=== PATIENT | male | born 1960 | race Caucasian/White ===

== ENCOUNTER 2019-12-03 17:36 | Inpatient (IN) | payer BC ==
[~2019-12-03] VITALS: Ht 177.8 cm; Wt 95.9 kg
[2019-12-03] MEDS ORDERED: IV NORMAL SALINE 1000ML BAG 1,000 ML IV ONE (17:45)
[2019-12-03 17:58] LABS: BASO # 0.2 x10^3/uL (0.0-0.2); BASO % 1 % (0-3); EOS # 0.1 x10^3/uL (0.0-0.7); EOS % 1 % (0-3); HEMATOCRIT 49.3 % (39.0-53.0); HEMOGLOBIN 16.7 g/dL (13.0-17.5); LYMPH % 27 % (24-48); MEAN CORPUSCULAR HEMOGLOBIN 32 pg (25-35); MEAN CORPUSCULAR HGB CONC 34 g/dL (31-37); MEAN CORPUSCULAR VOLUME 93 fL (79-100); MONO # 1.1 x10^3/uL (0.0-1.1); MONO % 8 % (0-9); NEUT # 9.2 x10^3/uL (1.8-7.7); NEUT % 63 % (31-73); PLATELET COUNT 344 x10^3/uL (140-400); RED BLOOD COUNT 5.31 x10^6/uL (4.30-5.70); RED CELL DISTRIBUTION WIDTH 13.4 % (11.5-14.5); WHITE BLOOD COUNT 14.6 x10^3/uL (4.0-11.0)
[2019-12-03] MEDS ORDERED: fentaNYL PF VIAL 100 MCG/2 ML VIAL IV ONE (18:00)
[2019-12-03] MEDS ORDERED: IOHEXOL 350 MG/ML 100 ML VIAL. IV ONE (18:00)
[2019-12-03] MEDS ORDERED: CONTRAST GIVEN. MC PRN (18:00)
[2019-12-03] MEDS ORDERED: ONDANSETRON PF 4 MG/2 ML VIAL. IVP ONE (18:00)
--- NOTE | 2019-12-03 18:04 | PHYS DOC ---
Past Medical History Past Medical History: Diabetes-Type II, Hypertension (SANDY LAROSE DO) Past Surgical History: No Surgical History (SANDY LAROSE DO) Smoking Status: Never Smoker Alcohol Use: Heavy (Binge drinks on weekends (reports average 24 pack every weekend)) Drug Use: None (SANDY LAROSE DO) General Adult EDM: Chief Complaint: GI PROBLEM HPI: HPI: 59-year-old male with past medical history of diabetes and hypertension presents with sudden epigastric abdominal pain which she reports as "tearing". Patient reports sensation of almost passing out. Reports diaphoresis. EMS was called and found patient with blood pressure in the 80s over 60s. He fluid hydration provided with some improvement. Patient does report some associated nausea and "dry heaves ". Patient reports sensation of needing to have a bowel movement. Denies known sick contacts. Denies fever or chills. Reports had previously been well. Reports symptoms started very suddenly at his place of employment. Denies trauma. Denies known exposure to COVID19. Reports history of binge drinking but on the weekends. (SANDY LAROSE DO) Review of Systems: Review of Systems: Constitutional: Denies fever or chills Eyes: Denies redness or eye pain HENT: Denies nasal congestion or sore throat Respiratory: Denies cough or shortness of breath Cardiovascular: Reports chest pain; denies palpitations GI: Reports abdominal pain and nausea : Denies dysuria or hematuria Musculoskeletal: Reports back pain; denies joint pain Integument: Denies rash or skin lesions; reports diaphoresis Neurologic: Denies headache, focal weakness or sensory changes Complete systems were reviewed and found to be within normal limits, except as documented in this note. (SANDY LAROSE DO) Heart Score: HEART Score for Chest Pain: HEART Score for Chest Pain Response (Comments) Value History Moderately Suspicious 1 ECG Normal 0 Age >45 - < 65 1 Risk Factors 1 or 2 Risk Factors 1 Total 3 Risk Factors: Risk Factors: DM, Current or recent (<one month) smoker, HTN, HLP, family history of CAD, obesity. Risk Scores: Score 0 - 3: 2.5% MACE over next 6 weeks - Discharge Home Score 4 - 6: 20.3% MACE over next 6 weeks - Admit for Clinical Observation Score 7 - 10: 72.7% MACE over next 6 weeks - Early Invasive Strategies (SANDY LAROSE DO) Current Medications: Current Medications Medications (Trade) Dose Ordered Sig/Chidi Start Time Stop Time Status Last Admin Dose Admin Info (CONTRAST GIVEN -- Rx MONITORING) 1 each PRN DAILY PRN 12/03/19 18:00 12/05/19 17:59 Iohexol (Omnipaque 350 Mg/ml) 90 ml 1X ONCE 12/03/19 18:00 12/03/19 18:01 Sodium Chloride 1,000 ml @ 1,000 mls/hr 1X ONCE 12/03/19 17:45 12/03/19 18:44 (SANDY LAROSE DO) Allergies: Allergies: Allergies Coded Allergies Type Severity Reaction Last Updated Verified No Known Drug Allergies 12/03/19 No (SANDY LAROSE DO) Physical Exam: PE: Constitutional: Well developed, well nourished, ill appearing, non-toxic appearance HENT: Normocephalic, atraumatic, oropharynx moist Eyes: PERRL, EOMI, conjunctiva normal, no discharge, no nystagmus Neck: Normal range of motion, no tenderness, supple Cardiovascular: Heart rate normal, regular rhythm Lungs & Thorax: Bilateral breath sounds clear to auscultation, no wheezing Abdomen: Soft, epigastric tenderness on palpation, voluntary guarding noted, mild distention noted Skin: Warm, dry, no erythema, no rash Back: No tenderness, no CVA tenderness Extremities: No tenderness, ROM intact, no edema Neurologic: Alert and oriented X 3, normal motor function, normal sensory function, no focal deficits noted Psychologic: Affect normal, judgment normal (SANDY LAROSE DO) Current Patient Data: Vital Signs: Vital Signs Date Time Temp Pulse Resp B/P (MAP) Pulse Ox O2 Delivery O2 Flow Rate FiO2 12/03/19 17:36 97.6 97 20 112/85 (94) 94 Room Air 97.6 (SANDY LAROSE DO) EKG: EKG: @1743 NSR at 91bpm, NO ST elevation, QRS 102ms, QT/QTc 362/447ms (SANDY LAROSE DO) Radiology/Procedures: Radiology/Procedures: [] (SANDY LAROSE DO) Course & Med Decision Making: Course & Med Decision Making Patient presents via EMS with history of near syncope, epigastric pain with radiation to back, nausea and dry heaving, and hypotension. Patient noted to be diaphoretic upon arrival. Pain addressed with fentanyl. Zofran provided for nausea. Cannot exclude aortic dissection or AAA. Patient sent immediately for CT imaging which is currently pending. Labs obtained and pending. Sign out given to Dr. Stark for further evaluation and final disposition. Discussed current findings and plan with patient, who acknowledges understanding and agreement. (SANDY LAROSE DO) Course & Med Decision Making Assumed care of patient at check out. CT angio c/a/p suggests pancreatitis. Lipase is significantly elevated. Will admit patient for further care. (ANNAMARIE STARK MD) Dragon Disclaimer: Dragon Disclaimer: This electronic medical record was generated, in whole or in part, using a voice recognition dictation system. (SANDY LAROSE DO) Departure Departure Impression: Primary Impression: Acute pancreatitis Additional Impression: Epigastric abdominal pain Disposition: ADMITTED INPATIENT Condition: STABLE SANDY LAROSE DO Dec 03, 2019 18:04 ANNAMARIE STARK MD December 04, 2019 00:26
[2019-12-03 18:10] LABS: PROTHROMBIN TIME PATIENT 12.2 SEC (11.7-14.0)
[2019-12-03 18:16] LABS: CALCIUM 10.1 mg/dL (8.5-10.1); CREATININE 1.1 mg/dL (0.7-1.3); GFR 68.3; POTASSIUM 3.8 mmol/L (3.5-5.1)
[2019-12-03 18:23] LABS: ALBUMIN 4.4 g/dL (3.4-5.0); ALBUMIN/GLOBULIN RATIO 1.2 (1.0-1.7); TOTAL BILIRUBIN 0.6 mg/dL (0.2-1.0)
--- NOTE | 2019-12-03 18:24 | RAD ---
EXAM: CT ANGIOGRAM CHEST AND ABDOMEN WITH AND WITHOUT IV CONTRAST CLINICAL HISTORY: tearing chest pain. COMPARISON: None. TECHNIQUE: CT of the chest following the administration of intravenous contrast during the pulmonary arterial phase. Axial, coronal and sagittal reformatted images were generated including MIP images. ---PQRS compliance statement - One or more of the following individualized dose reduction techniques were utilized for this study: 1. Automated exposure control 2. Adjustment of the mA and/or kV according to patient size 3. Use of iterative reconstruction technique--- FINDINGS: CT angiogram: Aorta is normal in caliber. No definite aortic dissection is identified. Intermittent atherosclerotic calcifications particularly of the infrarenal aorta. Bovine configuration of the aortic arch. The origin of the great vessels are widely patent. The celiac, SMA and IBETH are widely patent. 2 right renal arteries and a single left renal artery are also widely patent. Common iliac arteries bilaterally are also patent, normal in caliber without evidence for dissection. CHEST: Heart is not enlarged. No pericardial effusion. No mediastinal or hilar lymphadenopathy. No pleural effusion or pneumothorax. Linear subpleural opacities in the right lower lobe likely scarring/atelectasis. No lobar consolidation. No suspicious lung nodule or mass. ABDOMEN: Hepatic hypoattenuation likely fatty liver with focal sparing in the gallbladder fossa. Spleen is unremarkable. Adrenal glands are normal. Symmetric nephrograms. No focal renal lesion. No hydronephrosis. No hydroureter. Visualized appendix is normal. Moderate colonic stool content. No small or large bowel dilatation. Edema and infiltration is seen about the pancreatic head and body. Relative hypoenhancement of the pancreatic head/proximal body. No associated loculated fluid collection is seen. No abdominal lymphadenopathy. No abdominal ascites. Bones: Degenerative changes of the spine are seen. No aggressive osseous lesion is seen. IMPRESSION: 1. No evidence for aortic aneurysm or dissection. 2. Changes of acute pancreatitis involving the pancreatic head and body without associated loculated fluid collection. Relative hypoenhancement of the pancreatic head and body may be from ischemia or edema. No evidence for pancreatic necrosis. Electronically signed by: Panda Sultana MD (12/03/2019 6:21 PM) [facility]
[2019-12-03 18:37] LABS: BILIRUBIN,URINE NEGATIVE (NEG); CLARITY,URINE CLEAR; COLOR,URINE YELLOW; NITRITE,URINE NEGATIVE (NEG); PH,URINE 5.5 (<5.0-8.0); PROTEIN,URINE 30 mg/dL (NEG-TRACE); UROBILINOGEN,URINE 0.2 mg/dL (0.2 mg/dL)
[2019-12-03 18:52] LABS: BACTERIA,URINE 0 /HPF (0-FEW); HYALINE CASTS, URINE MODERATE /HPF; WBC,URINE OCC /HPF (0-4)
[2019-12-03] MEDS ORDERED: MORPHINE SULFATE 4 MG/ML VIAL. IV ONE (19:30)
[2019-12-03] MEDS: IV NORMAL SALINE 1000ML BAG 1,000 ML IV SCH ×2 (19:30→20:24)
[2019-12-03] MEDS ORDERED: ACETAMINOPHEN 650 MG SUPP.RECT. PR PRN (19:30)
[2019-12-03] MEDS ORDERED: ONDANSETRON PF 4 MG/2 ML VIAL. IV PRN (19:30)
[2019-12-03] MEDS ORDERED: MORPHINE SULFATE 4 MG/ML VIAL. IV PRN (19:45)
[2019-12-03] MEDS ORDERED: MULTIVIT INFUSN,ADULT 4,VIT K 10 ML, THIAMINE INJ 100 MG, FOLIC ACID INJ 1 MG in IV NOR... IV ONE (20:00)
[2019-12-03 21:30] VITALS: BP 106/65
[2019-12-03] MEDS ORDERED: LISI-334 PO (21:57)
[2019-12-03] MEDS ORDERED: METF500T16 PO (21:57)
[2019-12-03] MEDS: MORPHINE SULFATE 4 MG/ML VIAL. IV PRN (22:17)
[2019-12-03] MEDS: ENOXAPARIN 40 MG/0.4 ML SYRINGE. SQ SCH (22:19)
[2019-12-03 23:26] VITALS: BP 102/62
[2019-12-04] VITALS (7 sets, daily range): BP systolic 111–158; BP diastolic 65–89
[2019-12-04] MEDS: MORPHINE SULFATE 4 MG/ML VIAL. IV PRN (01:36)
[2019-12-04 03:31] LABS: BASO # 0.1 x10^3/uL (0.0-0.2); BASO % 0 % (0-3); EOS % 0 % (0-3); HEMATOCRIT 44.9 % (39.0-53.0); HEMOGLOBIN 14.9 g/dL (13.0-17.5); LYMPH # 0.9 x10^3/uL (1.0-4.8); LYMPH % 4 % (24-48); MEAN CORPUSCULAR HEMOGLOBIN 31 pg (25-35); MEAN CORPUSCULAR HGB CONC 33 g/dL (31-37); MEAN CORPUSCULAR VOLUME 95 fL (79-100); MONO # 1.4 x10^3/uL (0.0-1.1); MONO % 6 % (0-9); NEUT # 19.4 x10^3/uL (1.8-7.7); NEUT % 89 % (31-73); PLATELET COUNT 262 x10^3/uL (140-400); RED BLOOD COUNT 4.75 x10^6/uL (4.30-5.70); RED CELL DISTRIBUTION WIDTH 13.6 % (11.5-14.5); WHITE BLOOD COUNT 21.8 x10^3/uL (4.0-11.0)
[2019-12-04 03:45] LABS: CALCIUM 8.6 mg/dL (8.5-10.1); GFR 76.2; POTASSIUM 4.8 mmol/L (3.5-5.1)
[2019-12-04 03:52] LABS: ALBUMIN 3.2 g/dL (3.4-5.0); ALBUMIN/GLOBULIN RATIO 1.2 (1.0-1.7); TOTAL BILIRUBIN 0.6 mg/dL (0.2-1.0); TOTAL PROTEIN 5.9 g/dL (6.4-8.2)
[2019-12-04] MEDS: IV NORMAL SALINE 1000ML BAG 1,000 ML IV SCH ×2 (04:54→18:14)
[2019-12-04 05:16] LABS: % BANDS 1 % (0-9); % LYMPHS 8 % (24-48); % MONOS 4 % (0-10); % SEGS 87 % (35-66); PLT ESTIMATE ADEQUATE (ADEQUATE); TOXIC GRANULATION SLIGHT
--- NOTE | 2019-12-04 06:00 | EKG ---
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
--- NOTE | 2019-12-04 09:59 | PDOC2 ---
GI CONSULT Reason For Consult: pancreatitis HPI: HPI: 59 y/o male w/ acute onset of severe epigastric pain with radiation to periumbilical area (not to back) w/ nausea, retching, and syncope yesterday at work (at [employer]). Might have had similar symptoms a couple times in the past but if so, much less severe. H/o GERD but not for many years - used to take Maalox a lot. No dysphagia, vomiting/hematemesis, chronic abd pain, constipation, hematochezia, melena, change in appetite, or weight loss. Had a loose stool yesterday and actually has chronic "diarrhea" - thinks might be related to metformin but PCP also gave him a stool test kit that he hasn't completed yet. No previous EGD or colonoscopy and he doesn't plan or pursuing either - "I'd rather ." No GB, liver, pancreas, or PUD history. No regular NSAID use. Is off work on Tuesdays and Wednesdays, so on Tuesdays he drinks all day starting in the morning. He's not exactly sure how many cans of beer he drinks because he gets a 24 pack and share it with people playing [employer]. Might have h/o high cholesterol. Tolerating sips of water but "took a big slug" of Honey earlier that made abdominal pain worse. Wants to know why he should stay in the hospital, then says a family friend from pancreatitis because he didn't want to stay in the hospital. Also says his [id number]-wna works at [employer] and wants to be sure he's being treated appropriately at our facility. Jokingly says he could use a beer - "just kidding!" Reviewed ER note - hypotension prior to arrival. PMH: PMH: HTN, DM, HLD FH: Family History: No pertinent hx (denies GI cancers, pancreatitis) Social History: Smoke: No ALCOHOL: other Drugs: None ROS: GEN: Denies fevers, chills, sweats HEENT: Denies blurred vision, sore throat CV: Denies chest pain RESP: Denies shortness of air, cough GI: Per HPI : Denies hematuria, dysuria ENDO: Denies weight changes NEURO: +syncope MSK: Denies weakness, joint pain/swelling SKIN: Denies jaundice, pruritus Vitals: Vitals: Vital Signs Date Time Temp Pulse Resp B/P (MAP) Pulse Ox O2 Delivery O2 Flow Rate FiO2 12/04/19 08:00 Room Air 12/04/19 06:16 98.1 87 16 111/65 (80) 97 98.1 Labs: Labs: Laboratory Tests Test 12/03/19 17:45 12/03/19 17:49 12/03/19 18:18 12/03/19 18:25 Glucose (Fingerstick) 248 mg/dL (70-99) White Blood Count 14.6 x10^3/uL (4.0-11.0) Red Blood Count 5.31 x10^6/uL (4.30-5.70) Hemoglobin 16.7 g/dL (13.0-17.5) Hematocrit 49.3 % (39.0-53.0) Mean Corpuscular Volume 93 fL (79-100) Mean Corpuscular Hemoglobin 32 pg (25-35) Mean Corpuscular Hemoglobin Concent 34 g/dL (31-37) Red Cell Distribution Width 13.4 % (11.5-14.5) Platelet Count 344 x10^3/uL (140-400) Neutrophils (%) (Auto) 63 % (31-73) Lymphocytes (%) (Auto) 27 % (24-48) Monocytes (%) (Auto) 8 % (0-9) Eosinophils (%) (Auto) 1 % (0-3) Basophils (%) (Auto) 1 % (0-3) Neutrophils # (Auto) 9.2 x10^3/uL (1.8-7.7) Lymphocytes # (Auto) 4.0 x10^3/uL (1.0-4.8) Monocytes # (Auto) 1.1 x10^3/uL (0.0-1.1) Eosinophils # (Auto) 0.1 x10^3/uL (0.0-0.7) Basophils # (Auto) 0.2 x10^3/uL (0.0-0.2) Prothrombin Time 12.2 SEC (11.7-14.0) Prothromb Time International Ratio 0.9 (0.8-1.1) Activated Partial Thromboplast Time 24 SEC (24-38) Sodium Level 141 mmol/L (136-145) Potassium Level 3.8 mmol/L (3.5-5.1) Chloride Level 105 mmol/L (98-107) Carbon Dioxide Level 20 mmol/L (21-32) Anion Gap 16 (6-14) Blood Urea Nitrogen 21 mg/dL (8-26) Creatinine 1.1 mg/dL (0.7-1.3) Estimated GFR (Cockcroft-Gault) 68.3 BUN/Creatinine Ratio 19 (6-20) Glucose Level 218 mg/dL (70-99) Calcium Level 10.1 mg/dL (8.5-10.1) Magnesium Level 2.0 mg/dL (1.8-2.4) Total Bilirubin 0.6 mg/dL (0.2-1.0) Aspartate Amino Transf (AST/SGOT) 27 U/L (15-37) Alanine Aminotransferase (ALT/SGPT) 35 U/L (16-63) Alkaline Phosphatase 88 U/L (46-116) Creatine Kinase 96 U/L (39-308) Creatine Kinase MB (Mass) 1.3 ng/mL (0.0-3.6) Creatine Kinase MB Relative Index 1.4 % (0-4) Troponin I Quantitative < 0.017 ng/mL (0.000-0.055) HD-Umo-H-Type Natriuretic Peptide 72 pg/mL (0-124) Total Protein 8.0 g/dL (6.4-8.2) Albumin 4.4 g/dL (3.4-5.0) Albumin/Globulin Ratio 1.2 (1.0-1.7) Triglycerides Level 482 mg/dL (0-150) Lipase 48636 U/L (73-393) Lactic Acid Level 2.2 mmol/L (0.4-2.0) Urine Collection Type Unknown Urine Color Yellow Urine Clarity Clear Urine pH 5.5 (<5.0-8.0) Urine Specific [place] >=1.030 (1.000-1.030) Urine Protein 30 mg/dL (NEG-TRACE) Urine Glucose (UA) Negative mg/dL (NEG) Urine Ketones (Stick) Negative mg/dL (NEG) Urine Blood Negative (NEG) Urine Nitrite Negative (NEG) Urine Bilirubin Negative (NEG) Urine Urobilinogen Dipstick 0.2 mg/dL (0.2 mg/dL) Urine Leukocyte Esterase Negative (NEG) Urine RBC 1-2 /HPF (0-2) Urine WBC Occ /HPF (0-4) Urine Bacteria 0 /HPF (0-FEW) Urine Hyaline Casts Moderate /HPF Urine Mucus Mod /LPF Test 12/03/19 21:40 12/04/19 03:20 Lactic Acid Level 1.9 mmol/L (0.4-2.0) White Blood Count 21.8 x10^3/uL (4.0-11.0) Red Blood Count 4.75 x10^6/uL (4.30-5.70) Hemoglobin 14.9 g/dL (13.0-17.5) Hematocrit 44.9 % (39.0-53.0) Mean Corpuscular Volume 95 fL (79-100) Mean Corpuscular Hemoglobin 31 pg (25-35) Mean Corpuscular Hemoglobin Concent 33 g/dL (31-37) Red Cell Distribution Width 13.6 % (11.5-14.5) Platelet Count 262 x10^3/uL (140-400) Neutrophils (%) (Auto) 89 % (31-73) Lymphocytes (%) (Auto) 4 % (24-48) Monocytes (%) (Auto) 6 % (0-9) Eosinophils (%) (Auto) 0 % (0-3) Basophils (%) (Auto) 0 % (0-3) Neutrophils # (Auto) 19.4 x10^3/uL (1.8-7.7) Lymphocytes # (Auto) 0.9 x10^3/uL (1.0-4.8) Monocytes # (Auto) 1.4 x10^3/uL (0.0-1.1) Eosinophils # (Auto) 0.0 x10^3/uL (0.0-0.7) Basophils # (Auto) 0.1 x10^3/uL (0.0-0.2) Segmented Neutrophils % 87 % (35-66) Band Neutrophils % 1 % (0-9) Lymphocytes % 8 % (24-48) Monocytes % 4 % (0-10) Toxic Granulation Slight Platelet Estimate Adequate (ADEQUATE) Sodium Level 140 mmol/L (136-145) Potassium Level 4.8 mmol/L (3.5-5.1) Chloride Level 106 mmol/L (98-107) Carbon Dioxide Level 26 mmol/L (21-32) Anion Gap 8 (6-14) Blood Urea Nitrogen 18 mg/dL (8-26) Creatinine 1.0 mg/dL (0.7-1.3) Estimated GFR (Cockcroft-Gault) 76.2 BUN/Creatinine Ratio 18 (6-20) Glucose Level 254 mg/dL (70-99) Calcium Level 8.6 mg/dL (8.5-10.1) Total Bilirubin 0.6 mg/dL (0.2-1.0) Aspartate Amino Transf (AST/SGOT) 16 U/L (15-37) Alanine Aminotransferase (ALT/SGPT) 22 U/L (16-63) Alkaline Phosphatase 50 U/L (46-116) Total Protein 5.9 g/dL (6.4-8.2) Albumin 3.2 g/dL (3.4-5.0) Albumin/Globulin Ratio 1.2 (1.0-1.7) Lipase 9016 U/L (73-393) Allergies: Coded Allergies: No Known Drug Allergies (Unverified , 12/03/19) Medications: Current Medications Medications (Trade) Dose Ordered Sig/Chidi Route PRN Reason Start Time Stop Time Status Last Admin Dose Admin Sodium Chloride 1,000 ml @ 1,000 mls/hr 1X ONCE IV 12/03/19 17:45 12/04/19 04:52 DC 12/03/19 18:02 Iohexol (Omnipaque 350 Mg/ml) 90 ml 1X ONCE IV 12/03/19 18:00 12/03/19 18:01 DC 12/03/19 18:03 Fentanyl Citrate (Fentanyl 2ml Vial) 75 mcg 1X ONCE IV 12/03/19 18:00 12/03/19 18:01 DC 12/03/19 17:54 Ondansetron HCl (Zofran) 4 mg 1X ONCE IVP 12/03/19 18:00 12/03/19 18:01 DC 12/03/19 17:53 Morphine Sulfate (Morphine Sulfate) 4 mg 1X ONCE IV 12/03/19 19:30 12/03/19 19:31 DC 12/03/19 19:51 Sodium Chloride 1,000 ml @ 1,125 mls/hr Q54M IV 12/03/19 19:30 12/04/19 05:17 DC 12/03/19 19:30 Multivitamins 10 ml/Thiamine HCl 100 mg/Folic Acid 1 mg/Sodium Chloride 1,011.2 ml @ 125 mls/ hr 1X ONCE IV 12/03/19 20:00 12/04/19 04:05 DC 12/03/19 19:52 Ondansetron HCl (Zofran) 4 mg PRN Q4HRS PRN IV NAUSEA/VOMITING 12/03/19 19:30 12/03/19 22:17 Enoxaparin Sodium (Lovenox 40mg Syringe) 40 mg Q24H SQ 12/03/19 21:00 12/03/19 22:19 Morphine Sulfate (Morphine Sulfate) 4 mg PRN Q3HRS PRN IV pain 12/03/19 19:30 12/04/19 01:36 Sodium Chloride 1,000 ml @ 75 mls/hr [id number] IV 12/04/19 05:00 12/04/19 04:54 Imaging: Imaging: Chest/abd CTA FINDINGS: CT angiogram: Aorta is normal in caliber. No definite aortic dissection is identified. Intermittent atherosclerotic calcifications particularly of the infrarenalaorta. Bovine configuration of the aortic arch. The origin of the great vessels are widely patent. The celiac, SMA and IBETH are widely patent. 2 right renal arteries and a single left renal artery are also widely patent. Common iliac arteries bilaterally are also patent, normal in caliber without evidence for dissection. CHEST: Heart is not enlarged. No pericardial effusion. No mediastinal or hilar lymphadenopathy. No pleural effusion or pneumothorax. Linear subpleural opacities in the right lower lobe likely scarring/atelectasis. No lobar consolidation. No suspicious lung nodule ormass. ABDOMEN: Hepatic hypoattenuation likely fatty liver with focal sparing in the gallbladder fossa. Spleen is unremarkable. Adrenal glands are normal. Symmetric nephrograms. No focal renal lesion. No hydronephrosis. No hydroureter. Visualized appendix is normal. Moderate colonic stool content. No small or large bowel dilatation. Edema and infiltration is seen about the pancreatic head and body. Relative hypoenhancement of the pancreatic head/proximal body. No associated loculated fluid collection is seen. No abdominal lymphadenopathy. No abdominal ascites. Bones: Degenerative changes of the spine are seen. No aggressive osseous lesion is seen. IMPRESSION: 1. No evidence for aortic aneurysm or dissection. 2. Changes of acute pancreatitis involving the pancreatic head and body without associated loculated fluid collection. Relative hypoenhancement ofthe pancreatic head and body may be from ischemia or edema. No evidence for pancreatic necrosis. PE: GEN: NAD HEENT: Atraumatic, PERRL LUNGS: CTAB HEART: RRR ABD: quiet, not distended, tender periumbilical and to right EXTREMITY: No edema SKIN: No rashes, no jaundice NEURO/PSYCH: A & O 3 A/P: A/P: Pancreatitis, likely 2/2 to alcohol ?syncope, hypotension - prior to arrival Leukocytosis - worse GERD - years ago, no longer bothersome Chronic diarrhea/loose stools - seems unchanged CRC screen - none Fatty liver Binge drinking DM, hypertriglyceridemia -- Sips of water okay - otherwise NPO for now. Check abd US r/o cholelithiasis for completeness. 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 Explained rationale of close observation as inpt for pancreatitis and he agrees. Also said we'd be happy to communicate w/ [id number]. Ideally would have outpt scopes - he's not interested. NAWAF STEWART December 04, 2019 09:59
--- NOTE | 2019-12-04 12:12 | HP ---
ADMIT DATE: 12/03/2019 CHIEF COMPLAINT: Abdominal pain. HISTORY OF PRESENT ILLNESS: The patient is a pleasant middle-aged male who probably drinks too much. He presents with abdominal pain. He does have pancreatitis with a lipase level of 9016. I discussed the case with ER physician. We are going to admit the patient and consult GI. PAST MEDICAL HISTORY: Probable alcohol issues, although he states he does not drink daily, but he does drink a lot of beer; diabetes, hypertension. ALLERGIES: None. FAMILY HISTORY: Diabetes. SOCIAL HISTORY: He drinks heavily at times. No smoking or drugs. MEDICATIONS: Reviewed, please refer to the MRAD. REVIEW OF SYSTEMS: GENERAL: No history of weight change, weakness or fevers. SKIN: No bruising, hair changes or rashes. EYES: No blurred, double or loss of vision. NOSE AND THROAT: No history of nosebleeds, hoarseness or sore throat. HEART: No history of palpitations, chest pain or shortness of breath on exertion. LUNGS: Denies cough, hemoptysis, wheezing or shortness of breath. GASTROINTESTINAL: He complains of abdominal pain. GENITOURINARY: No history of frequency, urgency, hesitancy or nocturia. NEUROLOGIC: Denies history of numbness, tingling, tremor or weakness. PSYCHIATRIC: No history of panic, anxiety or depression. ENDOCRINE: No history of heat or cold intolerance, polyuria or polydipsia. EXTREMITIES: Denies muscle weakness, joint pain, pain on walking or stiffness. PHYSICAL EXAMINATION: VITALS: Within normal limits and are stable. GENERAL: No apparent distress. Alert and oriented. HEENT: Normal cephalic atraumatic, external auditory canals are patent. EYES: Extraocular muscles are intact, pupils are equally round and reactive to light and accommodation. MUSCULOSKELETAL: Well developed, well nourished, good range of motion. ENDOCRINE: No thyromegaly was palpated. LYMPHATICS: No cervical chain or axillary nodes were noted. HEMATOPOIETIC: No bruising. NECK: Supple, no JVD, no thyromegaly was noted. LUNGS: Clear to auscultation in all lung up without rhonchi or wheezing. HEART: RRR, S1, S2 present. Peripheral pulses intact, no obvious murmurs were noted. ABDOMEN: He has decreased bowel sounds with tenderness to palpation. EXTREMITIES: Without any cyanosis, clubbing, or edema. Pedal pulses intact, Homans sign is negative. NEUROLOGIC: Normal speech, normal tone. A and O x 3, moves all extremities, no obvious focal deficits. PSYCHIATRIC: Normal affect, normal mood. Stable. SKIN: No ulcerations or rashes, good skin turgor, no jaundice. VASCULAR: Good capillary refill, neurovascular bundle appears to be intact. LABORATORY DATA: Lipase is 9016. ASSESSMENT AND PLAN: Pancreatitis, suspect alcohol related. We will consult GI, p.r.n. narcotics, IV fluids, p.r.n. antiemetics, bowel rest, home meds, deep venous thrombosis prophylaxis. DIOR GUSMAN DO DR: EDDIE/olivia JOB#: [id number] / [id number]
--- NOTE | 2019-12-04 14:11 | RAD ---
Examination: ABDOMEN LTD History: Pancreatitis, pain Comparison/Correlation: CTA chest and abdomen Findings: Chronic ultrasound exam was performed. Gallbladder is identified to have a thickened wall measuring 0.5 cm. No calculi identified. No pericholecystic fluid. Portal venous flow is normal. Liver length is 18.6 cm. Diffuse fatty infiltration of the liver is noted with hyperechogenicity diffusely evident. Common bile duct is unremarkable. Right kidney measures 13.9 cm x 5.7 x 6 cm. No right hydronephrosis. Right renal contour is unremarkable. Proximal pancreas is unremarkable. Distal pancreas is obscured by bowel gas. Possibility of minimal ascites in Morison's pouch is raised. Impression: Fatty infiltration of liver. Gallbladder wall thickening raises the possibility of cholecystitis. No calculi or biliary dilatation. Possibility of minimal ascites in Morison's pouch is question in the interval as compared to CT exam performed yesterday. Electronically signed by: Alex Wong MD (12/04/2019 2:08 PM) [id number]
--- NOTE | 2019-12-04 15:08 | NUR ---
Transferred from south by w/c to room 438. Oriented to room and controls. Side rails up x's 2 with call light in reach. Cont. monitor.
--- NOTE | 2019-12-04 15:34 | NUR ---
SS following for discharge planning. SS reviewed pt chart. Pt is from home with spouse and is currently on room air. Pt transferred to room 438. Rula CARTAGENA notified.
[2019-12-04] MEDS: ENOXAPARIN 40 MG/0.4 ML SYRINGE. SQ SCH (22:27)
[2019-12-05 03:00] VITALS: BP 120/73
[2019-12-05 05:09] LABS: HEMATOCRIT 42.6 % (39.0-53.0); HEMOGLOBIN 14.5 g/dL (13.0-17.5); RED BLOOD COUNT 4.55 x10^6/uL (4.30-5.70); RED CELL DISTRIBUTION WIDTH 13.2 % (11.5-14.5); WHITE BLOOD COUNT 14.4 x10^3/uL (4.0-11.0)
[2019-12-05 05:48] LABS: CALCIUM 8.2 mg/dL (8.5-10.1); CREATININE 0.9 mg/dL (0.7-1.3); GFR 86.1; POTASSIUM 3.9 mmol/L (3.5-5.1)
[2019-12-05 05:57] LABS: ALBUMIN 2.8 g/dL (3.4-5.0); ALBUMIN/GLOBULIN RATIO 0.9 (1.0-1.7); TOTAL BILIRUBIN 1.1 mg/dL (0.2-1.0); TOTAL PROTEIN 5.8 g/dL (6.4-8.2)
[2019-12-05] MEDS: PANTOPRAZOLE IV PUSH 40 MG VIAL. IVP SCH (06:31)
[2019-12-05] MEDS: IV NORMAL SALINE 1000ML BAG 1,000 ML IV SCH ×2 (06:32→19:58)
[2019-12-05 07:00] VITALS: BP 158/90
[2019-12-05 11:00] VITALS: BP 149/89
--- NOTE | 2019-12-05 11:42 | PDOC ---
[employer] PROGRESS NOTE Chief Complaint Chief Complaint Pancreatitis Diabetes Hypertension Abnormal ultrasound: Gallbladder wall thickening raises the possibility of cholecystitis. No calculi or biliary dilatation. History of Present Illness History of Present Illness 12/05/2019 Patient seen and examined He is still complains of abdominal pain Chart reviewed Ultrasound reviewed report shows possible cholecystitis? Discussed with RN Vitals/I&O Vitals/I&O: Vital Signs Date Time Temp Pulse Resp B/P (MAP) Pulse Ox O2 Delivery O2 Flow Rate FiO2 12/05/19 07:00 98.9 89 16 158/90 (112) 94 Room Air 98.9 12/04/19 14:40 95.0 I & O 12/04/19 12/04/19 12/05/19 15:00 23:00 07:00 Intake Total 300 ml Balance 300 ml Physical Exam General: Alert, Oriented X3 Heart: Regular rate, Normal S1, Normal S2 Lungs: Clear Abdomen: Normal bowel sounds, Other (Tender) Extremities: No clubbing, No cyanosis Skin: No rashes, No breakdown Labs Labs: Laboratory Tests Test 12/05/19 04:25 White Blood Count 14.4 x10^3/uL (4.0-11.0) Red Blood Count 4.55 x10^6/uL (4.30-5.70) Hemoglobin 14.5 g/dL (13.0-17.5) Hematocrit 42.6 % (39.0-53.0) Mean Corpuscular Volume 94 fL (79-100) Mean Corpuscular Hemoglobin 32 pg (25-35) Mean Corpuscular Hemoglobin Concent 34 g/dL (31-37) Red Cell Distribution Width 13.2 % (11.5-14.5) Platelet Count 234 x10^3/uL (140-400) Sodium Level 137 mmol/L (136-145) Potassium Level 3.9 mmol/L (3.5-5.1) Chloride Level 104 mmol/L (98-107) Carbon Dioxide Level 28 mmol/L (21-32) Anion Gap 5 (6-14) Blood Urea Nitrogen 12 mg/dL (8-26) Creatinine 0.9 mg/dL (0.7-1.3) Estimated GFR (Cockcroft-Gault) 86.1 BUN/Creatinine Ratio 13 (6-20) Glucose Level 166 mg/dL (70-99) Calcium Level 8.2 mg/dL (8.5-10.1) Total Bilirubin 1.1 mg/dL (0.2-1.0) Aspartate Amino Transf (AST/SGOT) 15 U/L (15-37) Alanine Aminotransferase (ALT/SGPT) 19 U/L (16-63) Alkaline Phosphatase 44 U/L (46-116) Total Protein 5.8 g/dL (6.4-8.2) Albumin 2.8 g/dL (3.4-5.0) Albumin/Globulin Ratio 0.9 (1.0-1.7) Lipase 8246 U/L (73-393) Assessment and Plan Assessmemt and Plan Problems Medical Problems: (1) Epigastric abdominal pain Status: Acute Pancreatitis Diabetes Hypertension Abnormal ultrasound: Gallbladder wall thickening raises the possibility of cholecystitis. No calculi or biliary dilatation. Plan IV fluids IV pain meds Banana bag Await further GI input Trend labs DVT prophylaxis Full code Alcohol withdrawal protocol Comment Review of Relevant I have reviewed the following items lyric (where applicable) has been applied. Medications: Current Medications Medications (Trade) Dose Ordered Sig/Chidi Route PRN Reason Start Time Stop Time Status Last Admin Dose Admin Pantoprazole Sodium (PROTONIX VIAL for IV PUSH) 40 mg DAILYAC IVP 12/05/19 07:30 12/05/19 06:31 DIOR GUSMAN III DO December 05, 2019 11:42
--- NOTE | 2019-12-05 12:38 | PDOC ---
G I PROGRESS NOTE Subjective Few complaints. Says about "90% good". Physical Exam Lungs clear. RRR Abdomen soft, some epigastric tenderness. Review of Relevant I have reviewed the following items lyric (where applicable) has been applied. Labs Laboratory Tests Test 12/03/19 17:45 12/03/19 17:49 12/03/19 18:18 12/03/19 18:25 Glucose (Fingerstick) 248 mg/dL (70-99) White Blood Count 14.6 x10^3/uL (4.0-11.0) Red Blood Count 5.31 x10^6/uL (4.30-5.70) Hemoglobin 16.7 g/dL (13.0-17.5) Hematocrit 49.3 % (39.0-53.0) Mean Corpuscular Volume 93 fL (79-100) Mean Corpuscular Hemoglobin 32 pg (25-35) Mean Corpuscular Hemoglobin Concent 34 g/dL (31-37) Red Cell Distribution Width 13.4 % (11.5-14.5) Platelet Count 344 x10^3/uL (140-400) Neutrophils (%) (Auto) 63 % (31-73) Lymphocytes (%) (Auto) 27 % (24-48) Monocytes (%) (Auto) 8 % (0-9) Eosinophils (%) (Auto) 1 % (0-3) Basophils (%) (Auto) 1 % (0-3) Neutrophils # (Auto) 9.2 x10^3/uL (1.8-7.7) Lymphocytes # (Auto) 4.0 x10^3/uL (1.0-4.8) Monocytes # (Auto) 1.1 x10^3/uL (0.0-1.1) Eosinophils # (Auto) 0.1 x10^3/uL (0.0-0.7) Basophils # (Auto) 0.2 x10^3/uL (0.0-0.2) Prothrombin Time 12.2 SEC (11.7-14.0) Prothromb Time International Ratio 0.9 (0.8-1.1) Activated Partial Thromboplast Time 24 SEC (24-38) Sodium Level 141 mmol/L (136-145) Potassium Level 3.8 mmol/L (3.5-5.1) Chloride Level 105 mmol/L (98-107) Carbon Dioxide Level 20 mmol/L (21-32) Anion Gap 16 (6-14) Blood Urea Nitrogen 21 mg/dL (8-26) Creatinine 1.1 mg/dL (0.7-1.3) Estimated GFR (Cockcroft-Gault) 68.3 BUN/Creatinine Ratio 19 (6-20) Glucose Level 218 mg/dL (70-99) Calcium Level 10.1 mg/dL (8.5-10.1) Magnesium Level 2.0 mg/dL (1.8-2.4) Total Bilirubin 0.6 mg/dL (0.2-1.0) Aspartate Amino Transf (AST/SGOT) 27 U/L (15-37) Alanine Aminotransferase (ALT/SGPT) 35 U/L (16-63) Alkaline Phosphatase 88 U/L (46-116) Creatine Kinase 96 U/L (39-308) Creatine Kinase MB (Mass) 1.3 ng/mL (0.0-3.6) Creatine Kinase MB Relative Index 1.4 % (0-4) Troponin I Quantitative < 0.017 ng/mL (0.000-0.055) KX-Zae-H-Type Natriuretic Peptide 72 pg/mL (0-124) Total Protein 8.0 g/dL (6.4-8.2) Albumin 4.4 g/dL (3.4-5.0) Albumin/Globulin Ratio 1.2 (1.0-1.7) Triglycerides Level 482 mg/dL (0-150) Lipase 91365 U/L (73-393) Lactic Acid Level 2.2 mmol/L (0.4-2.0) Urine Collection Type Unknown Urine Color Yellow Urine Clarity Clear Urine pH 5.5 (<5.0-8.0) Urine Specific [place] >=1.030 (1.000-1.030) Urine Protein 30 mg/dL (NEG-TRACE) Urine Glucose (UA) Negative mg/dL (NEG) Urine Ketones (Stick) Negative mg/dL (NEG) Urine Blood Negative (NEG) Urine Nitrite Negative (NEG) Urine Bilirubin Negative (NEG) Urine Urobilinogen Dipstick 0.2 mg/dL (0.2 mg/dL) Urine Leukocyte Esterase Negative (NEG) Urine RBC 1-2 /HPF (0-2) Urine WBC Occ /HPF (0-4) Urine Bacteria 0 /HPF (0-FEW) Urine Hyaline Casts Moderate /HPF Urine Mucus Mod /LPF Test 12/03/19 21:40 12/04/19 03:20 12/05/19 04:25 Lactic Acid Level 1.9 mmol/L (0.4-2.0) White Blood Count 21.8 x10^3/uL (4.0-11.0) 14.4 x10^3/uL (4.0-11.0) Red Blood Count 4.75 x10^6/uL (4.30-5.70) 4.55 x10^6/uL (4.30-5.70) Hemoglobin 14.9 g/dL (13.0-17.5) 14.5 g/dL (13.0-17.5) Hematocrit 44.9 % (39.0-53.0) 42.6 % (39.0-53.0) Mean Corpuscular Volume 95 fL (79-100) 94 fL (79-100) Mean Corpuscular Hemoglobin 31 pg (25-35) 32 pg (25-35) Mean Corpuscular Hemoglobin Concent 33 g/dL (31-37) 34 g/dL (31-37) Red Cell Distribution Width 13.6 % (11.5-14.5) 13.2 % (11.5-14.5) Platelet Count 262 x10^3/uL (140-400) 234 x10^3/uL (140-400) Neutrophils (%) (Auto) 89 % (31-73) Lymphocytes (%) (Auto) 4 % (24-48) Monocytes (%) (Auto) 6 % (0-9) Eosinophils (%) (Auto) 0 % (0-3) Basophils (%) (Auto) 0 % (0-3) Neutrophils # (Auto) 19.4 x10^3/uL (1.8-7.7) Lymphocytes # (Auto) 0.9 x10^3/uL (1.0-4.8) Monocytes # (Auto) 1.4 x10^3/uL (0.0-1.1) Eosinophils # (Auto) 0.0 x10^3/uL (0.0-0.7) Basophils # (Auto) 0.1 x10^3/uL (0.0-0.2) Segmented Neutrophils % 87 % (35-66) Band Neutrophils % 1 % (0-9) Lymphocytes % 8 % (24-48) Monocytes % 4 % (0-10) Toxic Granulation Slight Platelet Estimate Adequate (ADEQUATE) Sodium Level 140 mmol/L (136-145) 137 mmol/L (136-145) Potassium Level 4.8 mmol/L (3.5-5.1) 3.9 mmol/L (3.5-5.1) Chloride Level 106 mmol/L (98-107) 104 mmol/L (98-107) Carbon Dioxide Level 26 mmol/L (21-32) 28 mmol/L (21-32) Anion Gap 8 (6-14) 5 (6-14) Blood Urea Nitrogen 18 mg/dL (8-26) 12 mg/dL (8-26) Creatinine 1.0 mg/dL (0.7-1.3) 0.9 mg/dL (0.7-1.3) Estimated GFR (Cockcroft-Gault) 76.2 86.1 BUN/Creatinine Ratio 18 (6-20) 13 (6-20) Glucose Level 254 mg/dL (70-99) 166 mg/dL (70-99) Calcium Level 8.6 mg/dL (8.5-10.1) 8.2 mg/dL (8.5-10.1) Total Bilirubin 0.6 mg/dL (0.2-1.0) 1.1 mg/dL (0.2-1.0) Aspartate Amino Transf (AST/SGOT) 16 U/L (15-37) 15 U/L (15-37) Alanine Aminotransferase (ALT/SGPT) 22 U/L (16-63) 19 U/L (16-63) Alkaline Phosphatase 50 U/L (46-116) 44 U/L (46-116) Total Protein 5.9 g/dL (6.4-8.2) 5.8 g/dL (6.4-8.2) Albumin 3.2 g/dL (3.4-5.0) 2.8 g/dL (3.4-5.0) Albumin/Globulin Ratio 1.2 (1.0-1.7) 0.9 (1.0-1.7) Lipase 9016 U/L (73-393) 8246 U/L (73-393) Laboratory Tests Test 12/05/19 04:25 White Blood Count 14.4 x10^3/uL (4.0-11.0) Red Blood Count 4.55 x10^6/uL (4.30-5.70) Hemoglobin 14.5 g/dL (13.0-17.5) Hematocrit 42.6 % (39.0-53.0) Mean Corpuscular Volume 94 fL (79-100) Mean Corpuscular Hemoglobin 32 pg (25-35) Mean Corpuscular Hemoglobin Concent 34 g/dL (31-37) Red Cell Distribution Width 13.2 % (11.5-14.5) Platelet Count 234 x10^3/uL (140-400) Sodium Level 137 mmol/L (136-145) Potassium Level 3.9 mmol/L (3.5-5.1) Chloride Level 104 mmol/L (98-107) Carbon Dioxide Level 28 mmol/L (21-32) Anion Gap 5 (6-14) Blood Urea Nitrogen 12 mg/dL (8-26) Creatinine 0.9 mg/dL (0.7-1.3) Estimated GFR (Cockcroft-Gault) 86.1 BUN/Creatinine Ratio 13 (6-20) Glucose Level 166 mg/dL (70-99) Calcium Level 8.2 mg/dL (8.5-10.1) Total Bilirubin 1.1 mg/dL (0.2-1.0) Aspartate Amino Transf (AST/SGOT) 15 U/L (15-37) Alanine Aminotransferase (ALT/SGPT) 19 U/L (16-63) Alkaline Phosphatase 44 U/L (46-116) Total Protein 5.8 g/dL (6.4-8.2) Albumin 2.8 g/dL (3.4-5.0) Albumin/Globulin Ratio 0.9 (1.0-1.7) Lipase 8246 U/L (73-393) Lipase "hanging". Vitals/I & O Vital Sign - Last 24 Hours 12/04/19 12/04/19 12/04/19 12/04/19 14:40 15:10 19:00 19:35 Temp 98.6 97.9 98.5 98.6 97.9 98.5 Pulse 87 86 90 Resp 18 20 18 B/P (MAP) 138/89 (105) 158/88 (111) 139/87 (104) Pulse Ox 92 97 O2 Delivery Room Air Room Air Room Air O2 Flow Rate 95.0 12/04/19 12/05/19 12/05/19 12/05/19 23:00 03:00 07:00 11:00 Temp 98.6 98.7 98.9 98.6 98.6 98.7 98.9 98.6 Pulse 91 91 89 87 Resp 16 18 16 18 B/P (MAP) 133/81 (98) 120/73 (89) 158/90 (112) 149/89 (109) Pulse Ox 95 95 94 96 O2 Delivery Room Air Room Air Intake and Output 12/04/19 12/04/19 12/05/19 15:00 23:00 07:00 Intake Total 300 ml Balance 300 ml Problem List Problems Medical Problems: (1) Epigastric abdominal pain Status: Acute Assessment Acute pancreatitis, likely alcoholic. Clinically better, but lipase not really falling. Plan of Care Note Continue basically NPO and IVF's. Follow labs. Once establish trend on enzymes and if continues to improve, try diet. If lipase increases significantly, would consider re-imaging. Hemodynamically unstable?: No Is patient in severe pain?: No Is NPO status required?: Yes SANDY GURROLA MD December 05, 2019 12:38
[2019-12-05 15:00] VITALS: BP 164/92
[2019-12-05 19:00] VITALS: BP 160/84
[2019-12-05] MEDS: ENOXAPARIN 40 MG/0.4 ML SYRINGE. SQ SCH (20:54)
[2019-12-05 23:00] VITALS: BP 145/83
[2019-12-06 03:00] VITALS: BP 143/88
[2019-12-06 05:15] LABS: ALBUMIN 2.7 g/dL (3.4-5.0); CALCIUM 8.1 mg/dL (8.5-10.1); CREATININE 0.8 mg/dL (0.7-1.3); GFR 98.6; POTASSIUM 3.9 mmol/L (3.5-5.1); TOTAL BILIRUBIN 1.2 mg/dL (0.2-1.0); TOTAL PROTEIN 5.3 g/dL (6.4-8.2)
[2019-12-06] MEDS: PANTOPRAZOLE IV PUSH 40 MG VIAL. IVP SCH (05:39)
[2019-12-06 07:59] VITALS: BP 139/81
[2019-12-06] MEDS: IV NORMAL SALINE 1000ML BAG 1,000 ML IV SCH (09:48)
--- NOTE | 2019-12-06 11:56 | PDOC ---
[employer] PROGRESS NOTE Chief Complaint Chief Complaint Pancreatitis Diabetes Hypertension Abnormal ultrasound: Gallbladder wall thickening raises the possibility of cholecystitis. No calculi or biliary dilatation. History of Present Illness History of Present Illness 12/06/2019 Patient seen and Patient seems to be at his baseline Chart reviewed Discussed with RN He denies any abdominal pain wants to eat I will go ahead and let him try eating and if he tolerates that we will let him go this afternoon 12/05/2019 Patient seen and examined He is still complains of abdominal pain Chart reviewed Ultrasound reviewed report shows possible cholecystitis? Discussed with RN Vitals/I&O Vitals/I&O: Vital Signs Date Time Temp Pulse Resp B/P (MAP) Pulse Ox O2 Delivery O2 Flow Rate FiO2 12/06/19 07:59 98.5 83 20 139/81 (100) 96 Room Air 98.5 Physical Exam General: Alert, Oriented X3 Heart: Regular rate, Normal S1, Normal S2 Lungs: Clear Abdomen: Normal bowel sounds, Other (Tender) Extremities: No clubbing, No cyanosis Skin: No rashes, No breakdown Labs Labs: Laboratory Tests Test 12/06/19 04:00 Sodium Level 140 mmol/L (136-145) Potassium Level 3.9 mmol/L (3.5-5.1) Chloride Level 105 mmol/L (98-107) Carbon Dioxide Level 28 mmol/L (21-32) Anion Gap 7 (6-14) Blood Urea Nitrogen 10 mg/dL (8-26) Creatinine 0.8 mg/dL (0.7-1.3) Estimated GFR (Cockcroft-Gault) 98.6 BUN/Creatinine Ratio 13 (6-20) Glucose Level 123 mg/dL (70-99) Calcium Level 8.1 mg/dL (8.5-10.1) Total Bilirubin 1.2 mg/dL (0.2-1.0) Aspartate Amino Transf (AST/SGOT) 14 U/L (15-37) Alanine Aminotransferase (ALT/SGPT) 17 U/L (16-63) Alkaline Phosphatase 47 U/L (46-116) Total Protein 5.3 g/dL (6.4-8.2) Albumin 2.7 g/dL (3.4-5.0) Albumin/Globulin Ratio 1.0 (1.0-1.7) Lipase 2546 U/L (73-393) Assessment and Plan Assessmemt and Plan Problems Medical Problems: (1) Epigastric abdominal pain Status: Acute Pancreatitis Diabetes Hypertension Abnormal ultrasound: Gallbladder wall thickening raises the possibility of cholecystitis. No calculi or biliary dilatation. Plan Probable discharge this afternoon if he tolerates his diet For now; IV fluids IV pain meds Banana bag Await further GI input Trend labs DVT prophylaxis Full code Alcohol withdrawal protocol Comment Review of Relevant I have reviewed the following items lyric (where applicable) has been applied. Hemodynamically unstable?: No Is patient in severe pain?: No Is NPO status required?: Yes DIOR GUSMAN III DO December 06, 2019 11:56
[2019-12-06 11:59] VITALS: BP 140/84
--- NOTE | 2019-12-06 13:06 | PDOC ---
G I PROGRESS NOTE Subjective Started on clears this AM. Denies any pain. Physical Exam Lungs clear. RRR Abdomen soft, not tender nor distended. Review of Relevant I have reviewed the following items lyric (where applicable) has been applied. Labs Laboratory Tests Test 12/05/19 04:25 12/06/19 04:00 White Blood Count 14.4 x10^3/uL (4.0-11.0) Red Blood Count 4.55 x10^6/uL (4.30-5.70) Hemoglobin 14.5 g/dL (13.0-17.5) Hematocrit 42.6 % (39.0-53.0) Mean Corpuscular Volume 94 fL (79-100) Mean Corpuscular Hemoglobin 32 pg (25-35) Mean Corpuscular Hemoglobin Concent 34 g/dL (31-37) Red Cell Distribution Width 13.2 % (11.5-14.5) Platelet Count 234 x10^3/uL (140-400) Sodium Level 137 mmol/L (136-145) 140 mmol/L (136-145) Potassium Level 3.9 mmol/L (3.5-5.1) 3.9 mmol/L (3.5-5.1) Chloride Level 104 mmol/L (98-107) 105 mmol/L (98-107) Carbon Dioxide Level 28 mmol/L (21-32) 28 mmol/L (21-32) Anion Gap 5 (6-14) 7 (6-14) Blood Urea Nitrogen 12 mg/dL (8-26) 10 mg/dL (8-26) Creatinine 0.9 mg/dL (0.7-1.3) 0.8 mg/dL (0.7-1.3) Estimated GFR (Cockcroft-Gault) 86.1 98.6 BUN/Creatinine Ratio 13 (6-20) 13 (6-20) Glucose Level 166 mg/dL (70-99) 123 mg/dL (70-99) Calcium Level 8.2 mg/dL (8.5-10.1) 8.1 mg/dL (8.5-10.1) Total Bilirubin 1.1 mg/dL (0.2-1.0) 1.2 mg/dL (0.2-1.0) Aspartate Amino Transf (AST/SGOT) 15 U/L (15-37) 14 U/L (15-37) Alanine Aminotransferase (ALT/SGPT) 19 U/L (16-63) 17 U/L (16-63) Alkaline Phosphatase 44 U/L (46-116) 47 U/L (46-116) Total Protein 5.8 g/dL (6.4-8.2) 5.3 g/dL (6.4-8.2) Albumin 2.8 g/dL (3.4-5.0) 2.7 g/dL (3.4-5.0) Albumin/Globulin Ratio 0.9 (1.0-1.7) 1.0 (1.0-1.7) Lipase 8246 U/L (73-393) 2546 U/L (73-393) Laboratory Tests Test 12/06/19 04:00 Sodium Level 140 mmol/L (136-145) Potassium Level 3.9 mmol/L (3.5-5.1) Chloride Level 105 mmol/L (98-107) Carbon Dioxide Level 28 mmol/L (21-32) Anion Gap 7 (6-14) Blood Urea Nitrogen 10 mg/dL (8-26) Creatinine 0.8 mg/dL (0.7-1.3) Estimated GFR (Cockcroft-Gault) 98.6 BUN/Creatinine Ratio 13 (6-20) Glucose Level 123 mg/dL (70-99) Calcium Level 8.1 mg/dL (8.5-10.1) Total Bilirubin 1.2 mg/dL (0.2-1.0) Aspartate Amino Transf (AST/SGOT) 14 U/L (15-37) Alanine Aminotransferase (ALT/SGPT) 17 U/L (16-63) Alkaline Phosphatase 47 U/L (46-116) Total Protein 5.3 g/dL (6.4-8.2) Albumin 2.7 g/dL (3.4-5.0) Albumin/Globulin Ratio 1.0 (1.0-1.7) Lipase 2546 U/L (73-393) Lilpase better; still up quite a bit. Vitals/I & O Vital Sign - Last 24 Hours 12/05/19 12/05/19 12/05/19 12/05/19 15:00 19:00 19:40 23:00 Temp 98.8 98.6 98.5 98.8 98.6 98.5 Pulse 87 91 91 Resp 18 18 18 B/P (MAP) 164/92 (116) 160/84 (109) 145/83 (103) Pulse Ox 95 96 95 O2 Delivery Room Air Room Air Room Air Room Air 12/06/19 12/06/19 03:00 07:59 Temp 98.7 98.5 98.7 98.5 Pulse 88 83 Resp 18 20 B/P (MAP) 143/88 (106) 139/81 (100) Pulse Ox 97 96 O2 Delivery Room Air Room Air Problem List Problems Medical Problems: (1) Epigastric abdominal pain Status: Acute Assessment Pancreatitis, likely from alcohol. Has had clears and so far tolerating. Plan of Care Note Continue diet; can advance if tolerates. Would favor one more day of observation at least. Hemodynamically unstable?: No Is patient in severe pain?: No Is NPO status required?: No SANDY GURROLA MD December 06, 2019 13:06
--- NOTE | 2019-12-06 13:27 | DS ---
DATE OF DISCHARGE: 12/06/2019 ADMISSION DIAGNOSIS: Alcoholic pancreatitis. DISCHARGE DIAGNOSIS: Resolving alcoholic pancreatitis. HOSPITAL COURSE: The patient is a pleasant 59-year-old male who drinks too much. He presented with alcoholic pancreatitis. His lipase was in the 8000 range. He was admitted. We gave him fluids and antiemetics and pain meds and banana bag. Today I saw him and examined him. His lipase level is down to 2000. He states his pain is gone. I spoke with the nurse. We are going to go ahead and advance his diet and if he tolerates that I will let him go this afternoon. DISPOSITION: Home. ACTIVITY: As tolerated. DIET: Low sodium. MEDICATIONS: Please see MRAD. TOTAL TIME: 34 minutes. DIOR GUSMAN DO DR: EDDIE/olivia JOB#: [id number] / [id number]
--- NOTE | 2019-12-06 18:47 | NUR ---
Discharge teaching completed. IV site discontinued without difficulty. Pt states he understands his discharge teaching and home medications. He was escorted out by staff and discharged to home with family.
== END 2019-12-06 16:40 | disposition home or self-care (01) | DRG 440 ==
LOC: ER 17:36 → 2 SOUTH 19:40 → 4 NORTH 12-04 15:07
PROVIDERS: ADMIT Internal Medicine; ATTEND Internal Medicine
DX: K85.20 Alcohol induced acute pancreatitis without necrosis or infection (principal); E11.9 Type 2 diabetes mellitus without complications; E78.00 Pure hypercholesterolemia, unspecified; E78.5 Hyperlipidemia, unspecified; I10 Essential (primary) hypertension; K52.9 Noninfective gastroenteritis and colitis, unspecified; Z83.3 Family history of diabetes mellitus; Z80.0 Family history of malignant neoplasm of digestive organs
CPT/HCPCS: 36415; 71275; 74175; 76705; 80053; 81001; 82553; 82962; 83605; 83690; 83735; 83880; 84478; 84484; 85007; 85025; 85027; 85610; 85730; 86301; 93005; 96361; 96365; 96375; 99285; C9113; J1650; J2270; J2405; J3010; J3411; J3490; J7030; Q9967; G0378